=== PATIENT | female | born 1945 | race Caucasian/White ===

== ENCOUNTER 2018-10-09 16:49 | Emergency (ER) | payer MEDICARE ==
[~2018-10-09] VITALS: Ht 160 cm; Wt 72.6 kg
[2018-10-09] MEDS ORDERED: POTA10TA10 (17:19)
[2018-10-09] MEDS ORDERED: ROSU10TA27 (17:19)
[2018-10-09] MEDS ORDERED: METH2.5T (17:19)
[2018-10-09] MEDS ORDERED: APIX5TAB (17:19)
[2018-10-09] MEDS ORDERED: LEVO88TA54 (17:19)
[2018-10-09] MEDS ORDERED: BUPR100T15 (17:19)
[2018-10-09] MEDS ORDERED: LOSA1TAB20 (17:19)
[2018-10-09] MEDS ORDERED: FURO40TA4 (17:19)
--- NOTE | 2018-10-09 17:22 | ED Cough/URI ---
General Chief Complaint: Cough/Cold/Flu Symptoms Stated Complaint: CONGESTION,COUGH,EAR PAIN Nursing Triage Note: DEVELOPED COUGH, COLD WITH CONGESTION TODAY Sepsis Screen: No Definite Risk Source: patient Exam Limitations: no limitations History of Present Illness Date Seen by Provider: Oct 09, 2018 Time Seen by Provider: 17:00 Initial Comments 73-year-old female presents with rather abrupt onset of symptoms of nasal drainage, sore throat, cough and myalgias predominately in her shoulders. She has had a low-grade temperature elevation. She has a history of cigarette smoking and pacemaker dependent cardiac rhythm. She's not seen particular discoloration of her sputum. Her symptoms began this morning. She states she was fine last night and yesterday. Allergies and Home Medications Allergies Uncoded Allergies: PENICILLIN (Adverse Reaction, Unknown, 10/09/18) Patient Home Medication List Home Medication List Reviewed: Yes Review of Systems Review of Systems Constitutional: chills, fever, malaise, weakness EENTM: ear pain, nose congestion Respiratory: cough Cardiovascular: see HPI Gastrointestinal: no symptoms reported Genitourinary: no symptoms reported Musculoskeletal: see HPI Skin: no symptoms reported Psychiatric/Neurological: No Symptoms Reported Hematologic/Lymphatic: No Symptoms Reported Immunological/Allergic: no symptoms reported Past Zwlfpvg-Tzyfiu-Wglstp Hx Past Med/Social Hx: Reviewed Nursing Past Med/Soc Hx Patient Social History Alcohol Use: Denies Use Recreational Drug Use: No Smoking Status: Current Everyday Smoker Type Used: Cigarettes Recent Foreign Travel: No (N) Contact w/Someone Who Travel: No (N) Recent Infectious Disease Expo: No Recent Hopitalizations: No Physical Abuse: No Sexual Abuse: No Mistreated: No Fear: No Immunizations Up To Date Date of Influenza Vaccine: Apr 11, 2018 Seasonal Allergies Seasonal Allergies: No Past Medical History Surgeries: Yes (ablation) Defibrillator, Pacemaker Respiratory: Yes (YAHIR (uses O2 but not using a CPAP)) Sleep Apnea Currently Using CPAP: No Cardiac: Yes (Hx ablation, pacemaker/defib) Genitourinary: No Gastrointestinal: No Musculoskeletal: No Endocrine: Yes Hypothyroidsim HEENT: No Cancer: No Psychosocial: No Blood Disorders: No Physical Exam Vital Signs - First Documented 10/09/18 16:53 Temp 101.1 Pulse 81 Resp 20 B/P (MAP) 137/53 (81) Pulse Ox 95 O2 Delivery Room Air Capillary Refill : Less Than 3 Seconds Height: 5'3.00" Weight: 160lbs. oz. 72.202993au; BMI Method:Stated General Appearance: WD/WN, no apparent distress Eyes: Bilateral Eye Normal Inspection, Bilateral Eye PERRL, Bilateral Eye EOMI HEENT: normal ENT inspection Neck: non-tender, full range of motion, supple, normal inspection Respiratory: chest non-tender, no respiratory distress, no accessory muscle use , rhonchi (scattered) Cardiovascular: regular rate, rhythm, no edema, no gallop, no JVD, no murmur, other (pacemaker left anterior chest) Gastrointestinal: normal bowel sounds, non tender, soft, no organomegaly, no pulsatile mass Extremities: normal range of motion, non-tender, normal inspection, no pedal edema, no calf tenderness 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, no motor/sensory deficits, alert, normal mood/affect, oriented x 3 Skin: normal color, warm/dry Lymphatic: no adenopathy Progress/Results/Core Measures Suspected Sepsis Recent Fever Within 48 Hours: Yes Infection Criteria Present: Suspected New Infection New/Unexplained Altered Menta: No Sepsis Screen: No Definite Risk SIRS Temperature:101.1 Pulse: 81 Respiratory Rate: 20 Laboratory Tests 10/09/18 17:30: White Blood Count 6.5 Blood Pressure 137 /53 Mean: 81 Laboratory Tests 10/09/18 17:30: Creatinine 0.85, Platelet Count 143, Total Bilirubin 0.8 Results/Orders Lab Results Laboratory Tests Test 10/09/18 17:30 Range/Units White Blood Count 6.5 4.3-11.0 10^3/uL Red Blood Count 3.88 L 4.35-5.85 10^6/uL Hemoglobin 12.6 11.5-16.0 G/DL Hematocrit 37 35-52 % Mean Corpuscular Volume 95 80-99 FL Mean Corpuscular Hemoglobin 32 25-34 PG Mean Corpuscular Hemoglobin Concent 34 32-36 G/DL Red Cell Distribution Width 14.0 10.0-14.5 % Platelet Count 143 130-400 10^3/uL Mean Platelet Volume 9.6 7.4-10.4 FL Neutrophils (%) (Auto) 75 42-75 % Lymphocytes (%) (Auto) 12 12-44 % Monocytes (%) (Auto) 12 0-12 % Eosinophils (%) (Auto) 1 0-10 % Basophils (%) (Auto) 1 0-10 % Neutrophils # (Auto) 4.9 1.8-7.8 X 10^3 Lymphocytes # (Auto) 0.8 L 1.0-4.0 X 10^3 Monocytes # (Auto) 0.8 0.0-1.0 X 10^3 Eosinophils # (Auto) 0.0 0.0-0.3 10^3/uL Basophils # (Auto) 0.1 0.0-0.1 10^3/uL Sodium Level 134 L 135-145 MMOL/L Potassium Level 3.6 3.6-5.0 MMOL/L Chloride Level 94 L 98-107 MMOL/L Carbon Dioxide Level 25 21-32 MMOL/L Anion Gap 15 H 5-14 MMOL/L Blood Urea Nitrogen 13 7-18 MG/DL Creatinine 0.85 0.60-1.30 MG/DL Estimat Glomerular Filtration Rate > 60 BUN/Creatinine Ratio 15 Glucose Level 107 H 70-105 MG/DL Calcium Level 9.0 8.5-10.1 MG/DL Corrected Calcium 9.2 8.5-10.1 MG/DL Total Bilirubin 0.8 0.1-1.0 MG/DL Aspartate Amino Transf (AST/SGOT) 58 H 5-34 U/L Alanine Aminotransferase (ALT/SGPT) 31 0-55 U/L Alkaline Phosphatase 118 40-136 U/L Total Protein 7.0 6.4-8.2 GM/DL Albumin 3.7 3.2-4.5 GM/DL Micro Results Microbiology 10/09/18 Influenza Types A,B Antigen (JERI) - Final, Complete My Orders Orders - MERRILL HERNANDEZ MD Cbc With Automated Diff (10/09/18 17:06) Comprehensive Metabolic Panel (10/09/18 17:06) Chest 1 View Ap/Pa Only (10/09/18 17:06) Ekg Tracing (10/09/18 17:06) O2 (10/09/18 17:06) Saline Lock/Iv-Start (10/09/18 17:06) Monitor-Rhythm Ecg Trace Only (10/09/18 17:06) Influenza A And B Antigens (10/09/18 17:06) Azithromycin Tablet (Zithromax Tablet) (10/09/18 18:43) Vital Signs/I&O 10/09/18 10/09/18 16:53 16:53 Temp 101.1 Pulse 81 Resp 20 B/P (MAP) 137/53 (81) Pulse Ox 95 O2 Delivery Room Air Room Air Capillary Refill : Less Than 3 Seconds Blood Pressure Mean: 81 Progress Note : Time: 18:44 Progress Note Reviewed results. Pt comfortable with outpatient management. Diagnostic Imaging Diagonstic Imaging: Xray Plain Films/CT/US/NM/MRI: chest Comments No acute changes. per radiologist. Departure Impression Primary Impression: Upper respiratory infection Qualified Codes: J00 - Acute nasopharyngitis [common cold] Additional Impression: Bronchitis Disposition: HOME, SELF-CARE Condition: Stable Departure-Patient Inst. Decision time for Depature: 18:45 Referrals: GEORGIE WHITE DO (PCP/Family) Primary Care Physician 2-3 days, sooner as needed Patient Instructions: Acute Bronchitis, Adult (DC), Viral Upper Respiratory Infection, Adult (DC) Scripts Azithromycin (Zithromax) 250 Mg Tablet 250 MG PO UD, #6 TAB TAKE 2 TABLETS TODAY, THEN TAKE 1 TABLET DAILY FOR 4 MORE DAYS Prov: MERRILL HERNANDEZ MD 10/09/18 MERRILL HERNANDEZ MD Oct 09, 2018 17:22
[2018-10-09 17:44] LABS: WHITE BLOOD COUNT 6.5 10^3/uL (4.3-11.0)
[2018-10-09 17:45] LABS: HEMATOCRIT 37 % (35-52); HEMOGLOBIN 12.6 G/DL (11.5-16.0); MEAN CORPUSCULAR HEMOGLOBIN 32 PG (25-34); MEAN CORPUSCULAR HGB CONC 34 G/DL (32-36); MEAN CORPUSCULAR VOLUME 95 FL (80-99)
[2018-10-09 17:46] LABS: BASOPHILS % (AUTO) 1 % (0-10); EOSINOPHILS % (AUTO) 1 % (0-10); LYMPHOCYTES # (AUTO) 0.8 X 10^3 (1.0-4.0); LYMPHOCYTES % (AUTO) 12 % (12-44); MEAN PLATELET VOLUME 9.6 FL (7.4-10.4); MONOCYTES # (AUTO) 0.8 X 10^3 (0.0-1.0); MONOCYTES % (AUTO) 12 % (0-12); NEUTROPHILS # (AUTO) 4.9 X 10^3 (1.8-7.8); NEUTROPHILS % (AUTO) 75 % (42-75); PLATELET COUNT 143 10^3/uL (130-400)
[2018-10-09 17:47] LABS: BASOPHILS # (AUTO) 0.1 10^3/uL (0.0-0.1)
--- NOTE | 2018-10-09 17:54 | Diagnostic Imaging Report ---
INDICATION: Cough and congestion. EXAMINATION: Upright portable chest was obtained. FINDINGS: Normal heart size and vascularity. The lungs are clear. There is no effusion or pneumothorax. A pacemaker is present. IMPRESSION: No acute abnormality is seen. Dictated by: Dictated on workstation # [id number]
[2018-10-09 18:32] LABS: BILIRUBIN,TOTAL 0.8 MG/DL (0.1-1.0); BUN/CREATININE RATIO 15; CARBON DIOXIDE 25 MMOL/L (21-32); CHLORIDE 94 MMOL/L (98-107); CREATININE SERUM 0.85 MG/DL (0.60-1.30); GFR ESTIMATED > 60; GLUCOSE 107 MG/DL (70-105); POTASSIUM 3.6 MMOL/L (3.6-5.0); SODIUM 134 MMOL/L (135-145)
[2018-10-09 18:33] LABS: ALANINE AMINOTRANSFERASE 31 U/L (0-55); ALBUMIN 3.7 GM/DL (3.2-4.5); ALKALINE PHOSPHATASE 118 U/L (40-136)
[2018-10-09] MEDS ORDERED: AZITHROMYCIN 250 MG TAB (ZITHROMAX) PO STA (18:43)
[2018-10-09] MEDS ORDERED: AZIT250T PO (18:46)
[2018-10-09 18:53] VITALS: BP 137/53
== END 2018-10-09 18:53 | disposition home or self-care (01) ==
LOC: ER FS 16:51
DX: J06.9 Acute upper respiratory infection, unspecified (principal); J40 Bronchitis, not specified as acute or chronic; G47.33 Obstructive sleep apnea (adult) (pediatric); E03.9 Hypothyroidism, unspecified; Z87.891 Personal history of nicotine dependence; Z95.810 Presence of automatic (implantable) cardiac defibrillator; Z95.0 Presence of cardiac pacemaker; Z88.0 Allergy status to penicillin
CPT/HCPCS: 36415; 71045; 80053; 85025; 87804; 93005

== ENCOUNTER 2018-11-03 06:33 | Emergency (ER) | payer MEDICARE ==
[~2018-11-03] VITALS: Ht 160 cm; Wt 68.0 kg
[~2018-11-03 06:33] MED LIST: APIX5TAB; AZIT250T PO; BUPR100T15; FURO40TA4; LEVO88TA54; LOSA1TAB20; METH2.5T; POTA10TA10; ROSU10TA27
--- NOTE | 2018-11-03 06:44 | ED General ---
General Chief Complaint: General Problems/Pain Stated Complaint: ARTHRITIS PAIN History of Present Illness Date Seen by Provider: Nov 03, 2018 Time Seen by Provider: 06:37 This is a 73-year-old female with a history of rheumatoid arthritis on methotrexate, reported history of hypertrophic cardiomyopathy status post pacemaker/defibrillator placement, anticoagulated with apixaban, here for acute on chronic bilateral hand pain. Topical lidocaine patches not working. Patient takes no medications for pain. No fever or chills. No weakness numbness or tingling. No chest pain or shortness of breath. Allergies and Home Medications Allergies Uncoded Allergies: PENICILLIN (Adverse Reaction, Unknown, 10/09/18) Home Medications Azithromycin 250 Mg Tablet, 250 MG PO UD TAKE 2 TABLETS TODAY, THEN TAKE 1 TABLET DAILY FOR 4 MORE DAYS Prescribed by: MERRILL HERNANDEZ on 10/09/18 184 Ondansetron 8 Mg Tab.rapdis, 8 MG PO TID PRN for NAUSEA/VOMITING Prescribed by: TANNER ROTHMAN on 11/03/18 0649 Tramadol HCl 50 Mg Tablet, 50 MG PO Q6H PRN for PAIN Prescribed by: TANNER ROTHMAN on 11/03/18 0649 Patient Home Medication List Home Medication List Reviewed: Yes Review of Systems Review of Systems Constitutional: no symptoms reported EENTM: no symptoms reported Respiratory: no symptoms reported Cardiovascular: no symptoms reported Gastrointestinal: no symptoms reported Genitourinary: no symptoms reported Musculoskeletal: see HPI Skin: no symptoms reported Psychiatric/Neurological: No Symptoms Reported Hematologic/Lymphatic: No Symptoms Reported Past Tosynrc-Hiqlra-Pgubhk Hx Past Med/Social Hx: Reviewed Nursing Past Med/Soc Hx Patient Social History Type Used: Cigarettes Recent Foreign Travel: No Contact w/Someone Who Travel: No Recent Hopitalizations: No Immunizations Up To Date Date of Influenza Vaccine: Apr 11, 2018 Seasonal Allergies Seasonal Allergies: No Past Medical History Surgeries: Yes (ablation) Defibrillator, Pacemaker Respiratory: Yes (YAHIR (uses O2 but not using a CPAP)) Sleep Apnea Currently Using CPAP: No Cardiac: Yes (Hx ablation, pacemaker/defib) Genitourinary: No Gastrointestinal: No Musculoskeletal: No Endocrine: Yes Hypothyroidsim HEENT: No Cancer: No Psychosocial: No Blood Disorders: No Physical Exam Vital Signs Capillary Refill : Height, Weight, BMI Height: 5'3.00" Weight: 160lbs. oz. 72.887629xw; BMI Method:Stated General Appearance: No Apparent Distress (obvious discomfort with movement, holding both hands up off of her body, there is a lidocaine patch over the dorsal left hand initially) HEENT: PERRL/EOMI, Moist Mucous Membranes Neck: Supple Respiratory: Lungs Clear Cardiovascular: Regular Rate, Rhythm, Normal Peripheral Pulses (brisk capillary refill) Gastrointestinal: Non Tender, Soft Extremity: Other (there is no erythema or warmth in the hands, there is mild edema in the left dorsal hand where the lidocaine patches been in place. There is no deformity, there is no focal area of increased tenderness, rather there is diffuse tenderness in the bilateral hands) Neurologic/Psychiatric: Alert, No Motor/Sensory Deficits (range of motion in affected extremities is limited by pain); No Abnormal Gait Skin: Warm/Dry Progress/Results/Core Measures Suspected Sepsis SIRS Temperature: Pulse: Respiratory Rate: Blood Pressure / Mean: Results/Orders My Orders Orders - TANNER ROTHMAN DO Dexamethasone Tablet (Decadron Tablet) (11/03/18 06:45) Ondansetron Oral Dissolve Tab (Zofran (11/03/18 06:45) Tramadol Tablet (Ultram Tablet) (11/03/18 06:45) Vital Signs/I&O Capillary Refill : Progress Note : Progress Note This is a patient with rheumatoid arthritis having bilateral hand pain which she attributes to her arthritis. It is very unlikely to be related to septic arthritis, she has no systemic symptoms, she also is not taking anything for pain, at this point we can give a dose of tramadol. She specifically requested dose of steroid which is reasonable, we can give an oral dose of Decadron now. 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 Tramadol has caused nausea for her in the past, she is agreeable with taking it with Zofran. Departure Impression Primary Impression: Arthritis Additional Impression: Chronic pain Qualified Codes: G89.29 - Other chronic pain Disposition: 01 HOME, SELF-CARE Condition: Stable Departure-Patient Inst. Referrals: GEORGIE WHITE DO (PCP/Family) Primary Care Physician Patient Instructions: Rheumatoid Arthritis Scripts Tramadol HCl (Tramadol HCl) 50 Mg Tablet 50 MG PO Q6H PRN for PAIN for 5 Days, #20 TAB 0 Refills Prov: TANNER ROTHMAN DO 11/03/18 Ondansetron (Ondansetron Odt) 8 Mg Tab.rapdis 8 MG PO TID PRN for NAUSEA/VOMITING for 7 Days, #30 TAB Prov: TANNER ROTHMAN DO 11/03/18 TANNER ROTHMAN DO Nov 03, 2018 06:44
[2018-11-03] MEDS ORDERED: TRAM50TA2 PO (06:49)
[2018-11-03] MEDS ORDERED: ONDA8TAB13 PO (06:49)
[2018-11-03] MEDS: ONDANSETRON 4 MG (ZOFRAN) ORAL DISSOLVE TAB PO STA (06:54)
[2018-11-03 06:56] VITALS: BP 124/46
[2018-11-03] MEDS: DEXAMETHASONE 4 MG TAB (DECADRON) PO STA (06:56)
[2018-11-03] MEDS: DEXAMETHASONE 10 MG/ML (DECADRON) 1 ML VIAL ONE (07:04)
== END 2018-11-03 06:57 | disposition home or self-care (01) ==
LOC: EDUNIT# 06:33 → ER FS 06:34
DX: M19.041 Primary osteoarthritis, right hand (principal); M19.042 Primary osteoarthritis, left hand; G89.29 Other chronic pain; G47.33 Obstructive sleep apnea (adult) (pediatric); I42.8 Other cardiomyopathies; E03.9 Hypothyroidism, unspecified; M06.9 Rheumatoid arthritis, unspecified; Z95.810 Presence of automatic (implantable) cardiac defibrillator; Z99.81 Dependence on supplemental oxygen; Z79.01 Long term (current) use of anticoagulants; Z88.0 Allergy status to penicillin
CPT/HCPCS: 99283

== ENCOUNTER 2020-01-17 05:18 | Emergency (ER) | payer MEDICARE ==
[~2020-01-17] VITALS: Ht 160 cm; Wt 74.0 kg
[~2020-01-17 05:18] MED LIST changes: +ONDA8TAB13 PO; -ROSU10TA27; +ROSU10TA28; +TRM50T PO
--- OUTSIDE RECORDS SUMMARY | 2020-01-17 05:23 | XMS REPORT | Continuity of Care Document ---
Author Organization Unknown Address Unknown Phone Unavailable Allergies Active Description Code Type Severity Reaction Onset Reported/Identified Relationship to Patient Clinical Status Yes PENICILLIN PENICILLIN Unknown N/A 10/09/2018 Yes Penicillins [id number] Drug Aller gy Unknown N/A 11/03/2018 Medications There is no data. Problems Date Dx Coded Attending Type Code Diagnosis Diagnosed By 10/09/2018 MERRILL HERNANDEZ MD, Ot E03.9 HYPOTHYROIDISM, UNSPECIFIED 10/09/2018 MERRILL HERNANDEZ MD, Ot G47.33 OBSTRUCTIVE SLEEP APNEA (ADULT) (PEDIATR 10/09/2018 MERRILL HERNANDEZ MD, Ot J06.9 ACUTE UPPER RESPIRATORY INFECTION, UNSPE 10/09/2018 MERRILL HERNANDEZ MD Ot J34.89 OTHER SPECIFIED DISORDERS OF NOSE AND NA 10/09/2018 MERRILL HERNANDEZ MD, Ot J40 BRONCHITIS, NOT SPECIFIED ACUTE OR CH 10/09/2018 MERRILL HERNANDEZ MD, Ot Z87.891 PERSONAL HISTORY OF NICOTINE DEPENDENCE 10/09/2018 MERRILL HERNANDEZ MD, Ot Z88.0 ALLERGY STATUS TO PENICILLIN 10/09/2018 MERRILL HERNANDEZ MD Ot Z95.0 PRESENCE OF CARDIAC PACEMAKER 10/09/2018 MERRILL HERNANDEZ MD Ot Z95.810 PRESENCE OF AUTOMATIC (IMPLANTABLE) CARD 11/03/2018 TANNER ROTHMAN DO Ot E03. 9 HYPOTHYROIDISM, UNSPECIFIED 11/03/2018 TANNER ROTHMAN DO T Ot G47. 33 OBSTRUCTIVE SLEEP APNEA (ADULT) (PEDIATR 11/03/2018 TANNER ROTHMAN DO T Ot G89. 29 OTHER CHRONIC PAIN 11/03/2018 TANNER ROTHMAN DO Ot I42. 8 OTHER CARDIOMYOPATHIES 11/03/2018 TANNER ROTHMAN DO T Ot M06. 9 RHEUMATOID ARTHRITIS, UNSPECIFIED 11/03/2018 TANNER ROTHMAN DO T Ot M19.041 PRIMARY OSTEOARTHRITIS, RIGHT HAND 11/03/2018 TANNER ROTHMAN DO Ot M19.042 PRIMARY OSTEOARTHRITIS, LEFT HAND 11/03/2018 STEPHAN DO, TANNER T Ot M79.641 PAIN IN RIGHT HAND 11/03/2018 STEPHAN LANIER, TANNER T Ot Z79. 01 [facility] (CURRENT) USE OF ANTICOAGULANT 11/03/2018 STEPHAN LANIER, TANNER T Ot Z88. 0 ALLERGY STATUS TO PENICILLIN 11/03/2018 STEPHAN LANIER, TANNER T Ot Z95.810 PRESENCE OF AUTOMATIC (IMPLANTABLE) CARD 11/03/2018 STEPHAN LANIER, TANNER T Ot Z99. 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 9 HYPOTHYROIDISM, UNSPECIFIED 11/05/2018 STEPHAN LANIER, TANNER T Ot G47. 33 OBSTRUCTIVE SLEEP APNEA (ADULT) (PEDIATR 11/05/2018 STEPHAN LANIER, TANNER T Ot G89. 29 OTHER CHRONIC PAIN 11/05/2018 STEPHAN LANIER, TANNER T Ot I42. 8 OTHER CARDIOMYOPATHIES 11/05/2018 STEPHAN LANIER, TANNER T Ot M06. 9 RHEUMATOID ARTHRITIS, UNSPECIFIED 11/05/2018 STEPHAN LANIER, TANNER T Ot M19.041 PRIMARY OSTEOARTHRITIS, RIGHT HAND 11/05/2018 STEPHAN LANIER, TANNER T Ot M19.042 PRIMARY OSTEOARTHRITIS, LEFT HAND 11/05/2018 STEPHAN LANIER, TANNER T Ot M79.641 PAIN IN RIGHT HAND 11/05/2018 STEPHAN LANIER, TANNER T Ot Z79. 01 [employer] (CURRENT) USE OF ANTICOAGULANT 11/05/2018 STEPHAN LANIER, TANNER T Ot Z88. 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 Results Test Result Range Influenza virus A and B antigen detectio n - 10/09/18 17:25 FLU RESULT NEGATIVE FOR INFLUENZA A AND B ANTIGENS BY [facility] Complete blood count (CBC) with automate d white blood cell (WBC) differential - 10/09/18 17:30 Blood leukocytes automated count (number/volume) 6.5 10*3/uL 4.3-11.0 Blood erythrocytes automated count (number/volume) 3.88 10*6/uL 4.35-5.85 Venous blood hemoglobin measurement (mass/volume) 12.6 g/dL 11.5-16.0 Blood hematocrit (volume fraction) 37 % 35-52 Automated erythrocyte mean corpuscular volume 95 [ foz_us] 80-99 Automated erythrocyte mean corpuscular h emoglobin (mass per erythrocyte) 32 pg 25-34 Automated erythrocyte mean corpuscular h emoglobin concentration measurement (mass/volume) 34 g/dL 32-36 Automated erythrocyte distribution width ratio 14. 0 % 10.0- 14.5 Automated blood platelet count (count/volume) 143 10*3/uL 130-400 Automated blood platelet mean volume measurement 9.6 [foz_us] 7.4-10.4 Automated blood neutrophils/100 leukocytes 75 % 42-75 Automated blood lymphocytes/100 leukocytes 12 % 12-44 Blood monocytes/100 leukocytes 12 % 0-12 Automated blood eosinophils/100 leukocytes 1 % 0-10 Automated blood basophils/100 leukocytes 1 % 0-10 Blood neutrophils automated count (number/volume) 4.9 10*3 1.8-7.8 Blood lymphocytes automated count (number/volume) 0.8 10*3 1.0-4.0 Blood monocytes automated count (number/volume) 0. 8 10*3 0.0-1.0 Automated eosinophil count 0.0 10*3/uL 0 .0-0.3 Automated blood basophil count (count/volume) 0.1 10*3/uL 0.0-0.1 Comprehensive metabolic panel - 10/09/18 17:30 Serum or plasma sodium measurement (moles/volume) 134 mmol/L 135-145 Serum or plasma potassium measurement (moles/volume) 3.6 mmol/L 3.6-5.0 Serum or plasma chloride measurement (moles/volume) 94 mmol/L 98-107 Carbon dioxide 25 mmol/L 21-32 Serum or plasma anion gap determination (moles/volume) 15 mmol/L 5-14 Serum or plasma urea nitrogen measurement (mass/volume ) 13 mg/dL 7-18 Serum or plasma creatinine measurement (mass/volume) 0.85 mg/dL 0.60-1.30 Serum or plasma urea nitrogen/creatinine mass ratio 15 NRG Serum or plasma creatinine measurement w ith calculation of estimated glomerular filtration rate > NRG Serum or plasma glucose measurement (mass/volume) 107 mg/dL 70-105 Serum or plasma calcium measurement (mass/volume) 9.0 mg/dL 8.5-10.1 Serum or plasma total bilirubin measurement (mass/volu me) 0.8 mg/dL 0.1-1.0 Serum or plasma alkaline phosphatase marcie surement (enzymatic activity/volume) 118 U/L 40-136 Serum or plasma aspartate aminotransfera se measurement (enzymatic activity/volume) 58 U/L 5-34 Serum or plasma alanine aminotransferase measurement (enzymatic activity/volume) 31 U/L 0-55 Serum or plasma protein measurement (mass/volume) 7.0 g/dL 6.4-8.2 Serum or plasma albumin measurement (mass/volume) 3.7 g/dL 3.2-4.5 CALCIUM CORRECTED 9.2 mg/dL 8.5-10.1 COVID-19 ([facility]) - 01/05/20 10:34 Encounters ACCT No. Visit Date/Time Discharge Status Pt. Type Provider Facility Loc./Unit Complaint [id number] 01/05/2020 10:20:00 01/05/2020 23:59: 59 [facility] [id number] 01/05/2020 10:20:00 Document Registration [id number] 11/03/2018 06:34:00 06:57:00 DIS Emergency TANNER ROTHMAN DO [facility] ER FS ARTHRITIS PAIN [id number] 10/09/2018 16:51:00 18:53:00 DIS Emergency DAVID MIRAMONTES, MERRILL villarreal [facility] ER FS CONGESTION,COUGH,EAR PA IN
[2020-01-17] MEDS ORDERED: fentaNYL INJECTION 100 MCG/2 ML AMP IVP ONE (05:45)
[2020-01-17] MEDS ORDERED: NS IV 1000 ML 1,000 ML IV SCH (05:45)
[2020-01-17] MEDS ORDERED: ONDANSETRON 4 MG/2 ML (SDV) Z0FRAN IVP ONE (05:45)
--- NOTE | 2020-01-17 05:46 | ED General ---
General Chief Complaint: Chest Pain Stated Complaint: SHORT OF BREATHE Nursing Triage Note: Pt arrived via ems with complaints of sob and chest pain. Nursing Sepsis Screen: No Definite Risk History of Present Illness Date Seen by Provider: Jan 17, 2020 Time Seen by Provider: 05:41 Initial Comments Patient presenting to emergency department for evaluation of chest pressure and shortness of breath that woke her from her sleep at approximately 4:30 or 445 this morning. She says it was quite intense and she called 911 and EMS gave her nitroglycerin and that improved her chest pressure somewhat but it is still present. Patient has a history of atrial fibrillation and had an ablation at [facility] 4 days ago and she thinks her vessels are patent however she thinks it and During the procedure and temperature they do not do a cath during an ablation. Patient's is on 4 L satting at 95% and she says she usually does not wear oxygen. She says she used to smoke cigarettes and I turned her oxygen off and went down to 90 quickly so I turned the oxygen back on. Patient has a pacemaker defibrillator. She appears uncomfortable but nontoxic. Allergies and Home Medications Allergies Coded Allergies: Penicillins (Verified Allergy, Unknown, 11/03/18) Home Medications Azithromycin 250 Mg Tablet, 250 MG PO UD TAKE 2 TABLETS TODAY, THEN TAKE 1 TABLET DAILY FOR 4 MORE DAYS Prescribed by: MERRILL HERNANDEZ on 10/09/18 184 Ondansetron 8 Mg Tab.rapdis, 8 MG PO TID PRN for NAUSEA/VOMITING Prescribed by: TANNER ROTHMAN on 11/03/18 0649 Tramadol HCl 50 Mg Tablet, 50 MG PO Q6H PRN for PAIN Prescribed by: TANNER ROTHMNA on 11/03/18 0649 Patient Home Medication List Home Medication List Reviewed: Yes Review of Systems Review of Systems Constitutional: no symptoms reported EENTM: no symptoms reported Respiratory: short of breath Cardiovascular: chest pain Gastrointestinal: no symptoms reported Genitourinary: no symptoms reported Musculoskeletal: no symptoms reported Skin: no symptoms reported Psychiatric/Neurological: No Symptoms Reported All Other Systems Reviewed Negative Unless Noted: Yes Past Lxvvjap-Dddwvx-Weikpt Hx Patient Social History Alcohol Use: Denies Use Recreational Drug Use: No Smoking Status: Former Smoker Type Used: Cigarettes 2nd Hand Smoke Exposure: No Recent Foreign Travel: No Contact w/Someone Who Travel: No Recent Infectious Disease Expo: No Recent Hopitalizations: No Physical Abuse: No Sexual Abuse: No Immunizations Up To Date Date of Influenza Vaccine: Apr 11, 2018 Seasonal Allergies Seasonal Allergies: Yes Past Medical History Surgeries: No Defibrillator, Pacemaker Respiratory: No Sleep Apnea Currently Using CPAP: No Cardiac: Yes Atrial Fibrillation, Cardiomyopathy Neurological: No Genitourinary: No Gastrointestinal: No Musculoskeletal: Yes Rheumatoid Arthritis Endocrine: No Hypothyroidsim HEENT: No Cancer: No Psychosocial: No Integumentary: No Blood Disorders: No Adverse Reaction/Blood Tranf: No Physical Exam Vital Signs Capillary Refill : Less Than 3 Seconds Height, Weight, BMI Height: 5'3.00" Weight: 150lbs. oz. 68.597408vk; 28.00 BMI Method:Stated General Appearance: WD/WN, Moderate Distress HEENT: PERRL/EOMI Neck: Supple Respiratory: No Respiratory Distress Cardiovascular: Regular Rate, Rhythm Gastrointestinal: Non Tender, Soft Back: Normal Inspection Extremity: Normal Capillary Refill Neurologic/Psychiatric: Alert, Oriented x3 Skin: Cool, Pallor Progress/Results/Core Measures Suspected Sepsis Recent Fever Within 48 Hours: No Infection Criteria Present: None New/Unexplained Altered Menta: No Sepsis Screen: No Definite Risk SIRS Temperature: Pulse: 83 Respiratory Rate: 26 Blood Pressure 115 /56 Mean: 75 Results/Orders My Orders Orders - NELLY CLARK DO Cbc With Automated Diff (01/17/20 05:35) Comprehensive Metabolic Panel (01/17/20 05:35) Fibrin Degradation Products (01/17/20 05:35) Chest 1 View Ap/Pa Only (01/17/20 05:35) Troponin I Fs (01/17/20 05:35) Partial Thromboplastin Time (01/17/20 05:35) Probnp Fs (01/17/20 05:35) Protime With Inr (01/17/20 05:35) Lipase (01/17/20 05:35) Magnesium (01/17/20 05:35) Ns Iv 1000 Ml (Sodium Chloride 0.9%) (01/17/20 05:45) Ondansetron Injection (Zofran Injectio (01/17/20 05:45) Fentanyl Injection (Sublimaze Injection (01/17/20 05:45) Ed Iv/Invasive Line Start (01/17/20 05:39) Vital Signs/I&O Capillary Refill : Less Than 3 Seconds Blood Pressure Mean: 75 Progress Note : Progress Note Patient appears cool pale and does not feel well. I am concerned that she could have ischemia or complication from her ablation going on at this time. Shortly after arrival I called [facility] and spoke to Dr. Johnson who agreed to accept patient is transferred asked me to give her a dose of aspirin before she leaves but no further anticoagulation given she is ready on Eliquis. 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 I cannot definitively cholecystectomy at this time given she has a paced rhythm on her EKG. She will be transferred via EMS for any workup comes back as I do not believe she should be sitting in this freestanding emergency room for an extended period of time rather she needs to go to a facility where intervention could be done. Patient is requesting transfer to and she was accepted to the cardiac ICU. Departure Impression Primary Impression: Chest pain Qualified Codes: R07.9 - Chest pain, unspecified Additional Impression: Dyspnea Disposition: 02 XFER SHT-TRM HOSP Condition: Unchanged Transfer Transfer Reason: Exceeds level of care Time Spoke to Accepting Phy: 05:50 Transfer Facility: [facility] Departure-Patient Inst. Referrals: GEORGIE WHITE DO (PCP/Family) Primary Care Physician NELLY CLARK DO Jan 17, 2020 05:46
[2020-01-17 05:50] LABS: HEMATOCRIT 37 % (35-52); HEMOGLOBIN 12.8 G/DL (11.5-16.0); MEAN CORPUSCULAR HEMOGLOBIN 33 PG (25-34); WHITE BLOOD COUNT 15.5 10^3/uL (4.3-11.0)
[2020-01-17 05:51] LABS: BASOPHILS # (AUTO) 0.1 10^3/uL (0.0-0.1); BASOPHILS % (AUTO) 0 % (0-10); EOSINOPHILS # (AUTO) 0.1 10^3/uL (0.0-0.3); EOSINOPHILS % (AUTO) 0 % (0-10); LYMPHOCYTES % (AUTO) 7 % (12-44); MEAN CORPUSCULAR HGB CONC 35 G/DL (32-36); MEAN CORPUSCULAR VOLUME 96 FL (80-99); MEAN PLATELET VOLUME 9.7 FL (7.4-10.4); MONOCYTES # (AUTO) 1.7 X 10^3 (0.0-1.0); MONOCYTES % (AUTO) 11 % (0-12); NEUTROPHILS # (AUTO) 12.5 X 10^3 (1.8-7.8); NEUTROPHILS % (AUTO) 81 % (42-75); PLATELET COUNT 269 10^3/uL (130-400); RED CELL DISTRIBUTION WIDTH 14.5 % (10.0-14.5)
--- NOTE | 2020-01-17 05:56 | Diagnostic Imaging Report ---
INDICATION: Shortness of breath. Chest pain. Comparison with 10/09/2018. FINDINGS: There has been significant increase in cardiac size since previous exam. Pulmonary venous congestion with interstitial infiltrates and small basilar pleural effusions have developed. ICD pacer on the left appears unchanged. IMPRESSION: Findings are consistent with development of congestive failure since the previous exam. Dictated by: Dictated on workstation # [id number]
[2020-01-17 06:04] LABS: FIBRIN DEGRADATION PRODUCTS 1.69 UG/ML (0.00-0.49); INR 1.5 (0.8-1.4)
[2020-01-17 06:05] LABS: SODIUM 131 MMOL/L (135-145)
[2020-01-17 06:06] LABS: CHLORIDE 90 MMOL/L (98-107); POTASSIUM 3.9 MMOL/L (3.6-5.0)
[2020-01-17 06:14] LABS: BAND NEUTROPHILS 12 %; BASOPHILS % (MANUAL) 0 %; EOSINOPHILS % (MANUAL) 1 %; LYMPHOCYTES % (MANUAL) 5 %; MONOCYTES % (MANUAL) 9 %; NEUTROPHILS % (MANUAL) 73 %; RBC MORPH NORMAL
[2020-01-17] MEDS ORDERED: ASPIRIN 81 MG CHEW (CHILDREN'S ASA) PO ONE (06:15)
[2020-01-17 06:18] VITALS: BP 107/83
[2020-01-17 06:20] LABS: ALANINE AMINOTRANSFERASE 20 U/L (0-55); ALKALINE PHOSPHATASE 111 U/L (40-136); BILIRUBIN,TOTAL 1.3 MG/DL (0.1-1.0); BUN/CREATININE RATIO 12; CALCIUM 8.8 MG/DL (8.5-10.1); CARBON DIOXIDE 27 MMOL/L (21-32); CREATININE SERUM 0.85 MG/DL (0.60-1.30); GFR ESTIMATED > 60; GLUCOSE 135 MG/DL (70-105); MAGNESIUM 1.4 MG/DL (1.6-2.4)
[2020-01-17 06:21] LABS: ALBUMIN 3.5 GM/DL (3.2-4.5)
[2020-01-17 06:22] LABS: LIPASE 9 U/L (8-78)
== END 2020-01-17 06:20 | disposition short-term general hospital (02) ==
LOC: EDUNIT# 05:18 → ER FS 05:19
DX: R07.89 Other chest pain (principal); R06.00 Dyspnea, unspecified; Z88.0 Allergy status to penicillin; Z95.810 Presence of automatic (implantable) cardiac defibrillator; Z87.891 Personal history of nicotine dependence
CPT/HCPCS: 36415; 71045; 80053; 83690; 83735; 83880; 84484; 85007; 85027; 85379; 85610; 85730

== ENCOUNTER → 2020-12-31 | Outpatient (CLI) | payer MEDICARE | LOC: LAB FS 13:44 | PROVIDERS: ATTEND Internal Medicine Rheumatology | DX: Z11.1 Encounter for screening for respiratory tuberculosis (principal); M05.79 Rheumatoid arthritis with rheumatoid factor of multiple sites without organ or systems involvement | CPT/HCPCS: 36415; 86480 ==

== ENCOUNTER 2021-10-23 15:41 | Emergency (ER) | payer MEDICARE ==
[~2021-10-23] VITALS: Ht 172 cm; Wt 70.0 kg
[2021-10-23 15:56] VITALS: BP 149/60
--- NOTE | 2021-10-23 15:56 | ED Cough/URI ---
General Chief Complaint: Cough/Cold/Flu Symptoms Stated Complaint: FACIAL PAIN,COUGH,SOB,FEVER History of Present Illness Date Seen by Provider: Oct 23, 2021 Time Seen by Provider: 15:56 Initial Comments 76-year-old female presents with bilateral sinus pressure and pain, cough, mild feeling of shortness of breath especially because she is having major congestion. Subjective fever. Patient symptoms started on Wednesday. She reports that approximately this time of year every year she gets a sinus infection due to being severely allergic to pollen. That normally requires an antibiotic. No rash, no nausea, vomitings, sore throat Allergies and Home Medications Allergies Coded Allergies: Penicillins (Verified Allergy, Unknown, 11/03/18) Patient Home Medication List Home Medication List Reviewed: Yes Apixaban (Eliquis) 5 Mg Tablet, (Reported) Entered as Reported by: SHANNON DODD on 10/09/181718 Azithromycin (Zithromax) 250 Mg Tablet, 250 MG PO UD Prescribed by: MERRILL HERNANDEZ on 10/09/18 184 Bupropion HCl (Bupropion HCl) 100 Mg Tablet, (Reported) Entered as Reported by: SHANNON DODD on 10/09/181718 Furosemide (Furosemide) 40 Mg Tablet, (Reported) Entered as Reported by: SHANNON DODD on 10/09/181718 Levothyroxine Sodium (Levothyroxine Sodium) 88 Mcg Tablet, (Reported) Entered as Reported by: SHANNON DODD on 10/09/181718 Losartan/Hydrochlorothiazide (Losartan-Hctz 50-12.5 mg Tab) 1 Each Tablet, (Reported) Entered as Reported by: SHANNON DODD on 10/09/181718 Methotrexate Sodium (Methotrexate) 2.5 Mg Tablet, (Reported) Entered as Reported by: SHANNON DODD on 10/09/181718 Ondansetron (Ondansetron Odt) 8 Mg Tab.rapdis, 8 MG PO TID PRN for NAUSEA/VOMITING Prescribed by: TANNER ROTHMAN on 11/03/18 0649 Potassium Chloride (Potassium Chloride) 10 Meq Tablet.er, (Reported) Entered as Reported by: SHANNON DODD on 10/09/181718 Rosuvastatin Calcium (Rosuvastatin Calcium) 10 Mg Tablet, (Reported) Entered as Reported by: SHANNON DODD on 10/09/18 6969 Tramadol HCl (Tramadol HCl) 50 Mg Tablet, 50 MG PO Q6H PRN for PAIN Prescribed by: TANNER ROTHMAN on 11/03/18 0649 Review of Systems Review of Systems Constitutional: No dizziness; fever EENTM: see HPI Respiratory: see HPI, cough, short of breath Cardiovascular: No chest pain Gastrointestinal: no symptoms reported Genitourinary: no symptoms reported Musculoskeletal: no symptoms reported Skin: no symptoms reported Psychiatric/Neurological: No Symptoms Reported Hematologic/Lymphatic: No Symptoms Reported Past Wlnrshq-Bkfwmb-Hyraiz Hx Seasonal Allergies Seasonal Allergies: Yes Past Medical History Surgeries: No Defibrillator, Pacemaker Respiratory: No Sleep Apnea Currently Using CPAP: No Cardiac: Yes Atrial Fibrillation, Cardiomyopathy Neurological: No Genitourinary: No Gastrointestinal: No Musculoskeletal: Yes Rheumatoid Arthritis Endocrine: No Hypothyroidsim HEENT: No Cancer: No Psychosocial: No Integumentary: No Blood Disorders: No Adverse Reaction/Blood Tranf: No Physical Exam Vital Signs - First Documented 10/23/21 15:56 Temp 36.6 Pulse 80 Resp 18 B/P (MAP) 149/60 (89) Pulse Ox 97 O2 Delivery Room Air Capillary Refill : Height: 5'3.00" Weight: 150lbs. oz. 68.586418mn; 28.00 BMI Method:Stated General Appearance: WD/WN, no apparent distress Eyes: Bilateral Eye Normal Inspection HEENT: other (Bilateral tenderness of the maxillofacial sinuses) Respiratory: lungs clear, normal breath sounds Cardiovascular: normal peripheral pulses, regular rate, rhythm Gastrointestinal: non tender, soft Extremities: non-tender, normal inspection Neurologic/Psychiatric: alert, normal mood/affect, oriented x 3 Skin: normal color, warm/dry Progress/Results/Core Measures Suspected Sepsis SIRS Temperature: Pulse: Respiratory Rate: Blood Pressure / Mean: Results/Orders Vital Signs/I&O 10/23/21 15:56 Temp 36.6 Pulse 80 Resp 18 B/P (MAP) 149/60 (89) Pulse Ox 97 O2 Delivery Room Air Capillary Refill : Progress Note : Progress Note Patient reports that she is limited on the medication she can take because it gives her heart palpitations. She reports that normally they give her a Z-Kem and it helps relieve her symptoms. Patient does not believe she has Covid or influenza and does not be tested for. At this time she can feel we need to do an x-ray since I had agreed to just treat her with azithromycin. Patient should follow-up with her primary care provider in a week if symptoms or not improving or worsen. Patient stable and discharged home Departure Impression Primary Impression: Sinusitis, acute maxillary Qualified Codes: J01.00 - Acute maxillary sinusitis, unspecified Additional Impression: Upper respiratory infection Qualified Codes: J06.9 - Acute upper respiratory infection, unspecified Disposition: 01 HOME, SELF-CARE Condition: Stable Departure-Patient Inst. Referrals: CHRISTIN JAY MD (PCP/Family) Primary Care Physician Patient Instructions: Sinusitis in Adults, Upper Respiratory Infection ED Add. Discharge Instructions: Follow-up with your primary care provider in 1 week for recheck of symptoms or sooner if symptoms worsen Return to the ER with any concerns or worsening of your symptoms All discharge instructions reviewed with patient and/or family. Voiced understanding. Scripts Azithromycin (Azithromycin) 250 Mg Tablet 250 MG PO UD, #6 TAB TAKE 2 TABLETS ON DAY ONE THEN TAKE 1 TABLET DAILY FOR FOUR MORE DAYS Prov: RYLEE WEAVER DO 10/23/21 RYLEE WEAVER DO Oct 23, 2021 15:56
[2021-10-23] MEDS ORDERED: AZIT250T12 PO (16:11)
== END 2021-10-23 16:25 | disposition home or self-care (01) ==
LOC: EDUNIT# 15:41 → ER FS 15:42
DX: J01.00 Acute maxillary sinusitis, unspecified (principal); J06.9 Acute upper respiratory infection, unspecified
CPT/HCPCS: 99281